=== PATIENT | female | born 1990 | race African-American/Black ===

== ENCOUNTER 2016-06-15 09:11 | Emergency (ER) | payer MEDICAID ==
[~2016-06-15] VITALS: Ht 180.3 cm; Wt 109.0 kg
[2016-06-15 10:33] LABS: BASOPHILS % 0.4 % (0.0-2.0); HEMATOCRIT. 39.9 % (36.0-48.0); LYMPHOCYTES % 34.1 % (20.0-50.0); MEAN CORPUSCULAR HEMOGLOBIN 28.4 pg (28.0-32.0); MEAN CORPUSCULAR HGB CONC 32.6 g/dL (31.0-37.0); MEAN CORPUSCULAR VOLUME 86.9 fL (81.0-99.0); MEAN PLATELET VOLUME 9.5 fl (7.4-10.4); MONOCYTES % 6.9 % (2.0-8.0); NEUTROPHILS % 57.6 % (40.0-76.0); PLATELET 188 x1000/uL (130-400); RED BLOOD CELL COUNT 4.59 mill/uL (4.2-5.4); RED CELL DISTRIBUTION WIDTH 13.3 % (11.6-14.6); WHITE BLOOD COUNT 4.7 x1000/uL (4.5-11.0)
[2016-06-15] MEDS: MAGNESIUM/ALUMINUM HYDROXIDE/SIMETHICONE 30ML UDC PO STA ×2 (10:37→11:49)
[2016-06-15] MEDS: ACETAMINOPHEN 325MG TABLET PO STA ×2 (10:37→11:49)
[2016-06-15] MEDS ORDERED: ONDANSETRON 4MG ODT PO STA (10:37)
[2016-06-15 10:41] LABS: CLARITY URINE CLEAR (CLEAR); COLOR URINE YELLOW (YELLOW); GLUCOSE URINE NEGATIVE (NEGATIVE); KETONES URINE NEGATIVE (NEGATIVE); LEUKOCYTE ESTERASE URINE NEGATIVE (NEGATIVE); NITRITE URINE NEGATIVE (NEGATIVE); OCCULT BLOOD URINE NEGATIVE (NEGATIVE); PH URINE 6.5 (4.5-8.0); PROTEIN URINE NEGATIVE (NEGATIVE); SPECIFIC GRAVITY URINE 1.028 (1.005-1.030)
[2016-06-15 10:42] LABS: ALANINE AMINOTRANSFERASE 14 IU/L (13-61); ANION GAP 10; CALCIUM 8.9 mg/dL (8.5-10.1); CARBON DIOXIDE 28 mEq/L (21-32); CHLORIDE 107 mEq/L (98-107); INDEX HEMOLYSI 1 (1-3); INDEX ICTERIC 1 (1-4); INDEX LIPEMIC 1 (1-3); LIPASE 122 IU/L (73-393); UREA NITROGEN BLOOD 7 mg/dL (7-21); eGFR > 60 mL/min (>60)
[2016-06-15 10:50] LABS: HCG SCREEN NEGATIVE
[2016-06-15 11:01] LABS: *AMPHETAMINES SCREEN URINE NEGATIVE (NEGATIVE); *BARBITURATES SCREEN URINE NEGATIVE (NEGATIVE); *BENZODIAZEPINES SCREEN URINE NEGATIVE (NEGATIVE); *COCAINE SCREEN URINE NEGATIVE (NEGATIVE); ECSTASY MDMA SCREEN URINE NEGATIVE (NEGATIVE); METHADONE URINE SCREEN NEGATIVE (NEGATIVE); OPIATES URINE SCREEN NEGATIVE (NEGATIVE); PHENCYCLIDINE URINE SCREEN NEGATIVE (NEGATIVE)
[2016-06-15 11:03] LABS: CANNABINOID URINE SCREEN PRESUMTIVE POSITIVE (NEGATIVE)
[2016-06-15 11:39] VITALS: BP 105/59
== END 2016-06-15 12:48 | disposition home or self-care (01) ==
LOC: ER 09:20
DX: N85.8 Other specified noninflammatory disorders of uterus (principal)
CPT/HCPCS: 36415; 76830; 76856; 80053; 80305; 81003; 83690; 84703; 85025; 99285; Q0162

== ENCOUNTER 2017-02-22 13:57 | Emergency (ER) | payer MEDICAID ==
[~2017-02-22] VITALS: Ht 180.3 cm; Wt 113.0 kg
[2017-02-22] MEDS ORDERED: KETOROLAC 30MG/ML VIAL IV ONE (17:45)
[2017-02-22] MEDS ORDERED: LIDOCAINE HCL 1% 20ML VIAL (Pyxis) INJ MC ONE (17:45)
[2017-02-22] MEDS ORDERED: MORPHINE SULFATE 4 MG/ML CPJ (NOT FOR IM USE) IV ONE (17:45)
[2017-02-22] MEDS ORDERED: LIDOCAINE/EPINEPHR/TETRACAINE 3ML TP ONE (19:15)
[2017-02-22 21:45] VITALS: BP 125/85
== END 2017-02-22 22:00 | disposition home or self-care (01) ==
LOC: ER 14:36
DX: N76.4 Abscess of vulva (principal)
CPT/HCPCS: 56405; 81025; 96374; 96375; 99284; J1885; J2270; J3490; Z7610

== ENCOUNTER 2017-02-25 11:30 | Emergency (ER) | payer MEDICAID ==
[~2017-02-25] VITALS: Ht 180.3 cm; Wt 114.0 kg
[2017-02-25 11:43] VITALS: BP 121/72
[2017-02-25] MEDS ORDERED: CEPH500C2 PO (11:47)
== END 2017-02-25 13:52 | disposition home or self-care (01) ==
LOC: ER 13:10
DX: Z48.00 Encounter for change or removal of nonsurgical wound dressing (principal)
CPT/HCPCS: 99281

== ENCOUNTER 2017-04-12 06:48 | Emergency (ER) | payer MEDICAID ==
[~2017-04-12] VITALS: Ht 180.3 cm; Wt 113.0 kg
[~2017-04-12 06:48] MED LIST: CEPH500C2 PO
[2017-04-12 08:09] LABS: BASOPHILS % 0.5 % (0.0-2.0); EOSINOPHILS % 1.6 % (0.0-5.0); HEMATOCRIT. 39.3 % (36.0-48.0); HEMOGLOBIN. 12.9 g/dL (12.0-16.0); LYMPHOCYTES % 27.5 % (20.0-50.0); MEAN CORPUSCULAR HEMOGLOBIN 28.6 pg (28.0-32.0); MEAN CORPUSCULAR VOLUME 87.1 fL (81.0-99.0); MEAN PLATELET VOLUME 9.7 fl (7.4-10.4); MONOCYTES % 7.7 % (2.0-8.0); NEUTROPHILS % 62.7 % (40.0-76.0); PLATELET 189 x1000/uL (130-400); RED BLOOD CELL COUNT 4.51 mill/uL (4.2-5.4); RED CELL DISTRIBUTION WIDTH 12.9 % (11.6-14.6)
[2017-04-12 08:16] LABS: KETONES URINE NEGATIVE (NEGATIVE); LEUKOCYTE ESTERASE URINE NEGATIVE (NEGATIVE); NITRITE URINE NEGATIVE (NEGATIVE); OCCULT BLOOD URINE 3+ (NEGATIVE); PROTEIN URINE NEGATIVE (NEGATIVE); SPECIFIC GRAVITY URINE 1.029 (1.005-1.030)
[2017-04-12 08:18] LABS: CLARITY URINE CLEAR (CLEAR); COLOR URINE YELLOW (YELLOW)
[2017-04-12 08:27] LABS: B-HCG QUANTITATIVE 15 mIU/mL (<3); CARBON DIOXIDE 28 mEq/L (21-32); CHLORIDE 106 mEq/L (98-107)
[2017-04-12 09:09] VITALS: BP 134/88
== END 2017-04-12 09:11 | disposition home or self-care (01) ==
LOC: ER 07:14
DX: O03.9 Complete or unspecified spontaneous abortion without complication (principal); Z3A.01 Less than 8 weeks gestation of pregnancy
CPT/HCPCS: 36415; 76801; 80053; 81001; 81025; 84702; 85025; 86850; 86900; 99285

== ENCOUNTER 2017-04-14 18:09 | Emergency (ER) | payer MEDICAID ==
[~2017-04-14] VITALS: Ht 180.3 cm; Wt 113.0 kg
[2017-04-14 23:03] LABS: BASOPHILS % 0.6 % (0.0-2.0); EOSINOPHILS % 1.6 % (0.0-5.0); HEMATOCRIT. 37.1 % (36.0-48.0); HEMOGLOBIN. 12.5 g/dL (12.0-16.0); LYMPHOCYTES % 40.5 % (20.0-50.0); MEAN CORPUSCULAR HEMOGLOBIN 29.5 pg (28.0-32.0); MEAN CORPUSCULAR VOLUME 87.3 fL (81.0-99.0); MEAN PLATELET VOLUME 9.2 fl (7.4-10.4); MONOCYTES % 6.5 % (2.0-8.0); NEUTROPHILS % 50.8 % (40.0-76.0); PLATELET 206 x1000/uL (130-400); RED BLOOD CELL COUNT 4.24 mill/uL (4.2-5.4); RED CELL DISTRIBUTION WIDTH 13.1 % (11.6-14.6)
[2017-04-14 23:09] LABS: CHLORIDE 107 mEq/L (98-107)
[2017-04-14 23:19] LABS: B-HCG QUANTITATIVE 3 mIU/mL (<3)
[2017-04-14 23:59] LABS: CLARITY URINE CLOUDY (CLEAR); COLOR URINE YELLOW (YELLOW); KETONES URINE TRACE (NEGATIVE); LEUKOCYTE ESTERASE URINE NEGATIVE (NEGATIVE); NITRITE URINE NEGATIVE (NEGATIVE); OCCULT BLOOD URINE NEGATIVE (NEGATIVE); PROTEIN URINE NEGATIVE (NEGATIVE); SPECIFIC GRAVITY URINE 1.033 (1.005-1.030)
[2017-04-15 01:20] VITALS: BP 122/71
[2017-04-17 04:18] LABS: CHLAMYDIA TRACHOMATIS NAA Negative (Negative); NEISSERIA GONORRHOEAE NAA Negative (Negative)
== END 2017-04-15 01:47 | disposition home or self-care (01) ==
LOC: ER 20:00
DX: O02.1 Missed abortion (principal)
CPT/HCPCS: 36415; 80053; 81001; 84702; 85025; 86850; 86900; 87210; 87491; 87591; 99284

== ENCOUNTER 2017-06-28 18:03 | Emergency (ER) | payer MEDICAID ==
[~2017-06-28] VITALS: Ht 162.6 cm; Wt 112.0 kg
[2017-06-28] MEDS ORDERED: IBUPROFEN 800MG TABLET PO ONE (18:15)
[2017-06-28] MEDS ORDERED: ONDANSETRON 4MG ODT PO ONE (18:15)
[2017-06-28 20:44] LABS: CLARITY URINE CLEAR (CLEAR); COLOR URINE YELLOW (YELLOW); KETONES URINE 2+ (NEGATIVE); LEUKOCYTE ESTERASE URINE NEGATIVE (NEGATIVE); NITRITE URINE NEGATIVE (NEGATIVE); OCCULT BLOOD URINE NEGATIVE (NEGATIVE); PH URINE 6.5 (4.5-8.0); PROTEIN URINE NEGATIVE (NEGATIVE); SPECIFIC GRAVITY URINE 1.023 (1.005-1.030); UROBILINOGEN URINE 0.2 E.U./dL (0.2-1.0)
[2017-06-28 21:15] VITALS: BP 127/77
== END 2017-06-28 21:20 | disposition home or self-care (01) ==
LOC: ER 18:03
DX: B34.9 Viral infection, unspecified (principal)
CPT/HCPCS: 71045; 81003; 81025; 87804; 99285; Q0162

== ENCOUNTER 2017-09-19 06:38 | Inpatient (IN) | payer MEDICAID ==
[~2017-09-19] VITALS: Ht 175.3 cm; Wt 115.9 kg
[2017-09-19] MEDS ORDERED: ASPIRIN 81MG TABLET PO STA (07:39)
[2017-09-19] MEDS ORDERED: SODIUM CHLORIDE 0.9% 1,000 ML IV ONE (07:39)
[2017-09-19] MEDS ORDERED: NITROGLYCERIN 0.4MG TABLET SL SL PRN (07:45)
[2017-09-19 08:07] LABS: BASOPHILS % 0.2 % (0.0-2.0); EOSINOPHILS % 0.9 % (0.0-5.0); HEMATOCRIT. 38.1 % (36.0-48.0); HEMOGLOBIN. 12.9 g/dL (12.0-16.0); LYMPHOCYTES % 21.8 % (20.0-50.0); MEAN CORPUSCULAR HEMOGLOBIN 28.9 pg (28.0-32.0); MEAN CORPUSCULAR VOLUME 85.2 fL (81.0-99.0); MEAN PLATELET VOLUME 9.3 fl (7.4-10.4); NEUTROPHILS % 71.1 % (40.0-76.0); PLATELET 160 x1000/uL (130-400); RED BLOOD CELL COUNT 4.47 mill/uL (4.2-5.4); RED CELL DISTRIBUTION WIDTH 14.1 % (11.6-14.6)
[2017-09-19 08:14] LABS: CHLORIDE 105 mEq/L (98-107)
[2017-09-19 08:18] LABS: D-DIMER 0.47 mg/L FEU (<0.50); PARTIAL THROMBOPLASTIN TIME 25.4 sec (23.4-31.0); PROTHROMBIN TIME 10.3 sec (9.4-11.6)
[2017-09-19 08:37] LABS: B-HCG QUANTITATIVE 41745 mIU/mL (<3)
[2017-09-19] MEDS ORDERED: ACETAMINOPHEN 325MG TABLET PO NR (19:45)
[2017-09-19 21:30] VITALS: BP 117/75
[2017-09-19] MEDS ORDERED: ACETAMINOPHEN 325MG TABLET PO PRN (21:45)
[2017-09-19] MEDS ORDERED: ONDANSETRON HCL 4MG/2ML VIAL IV PRN (21:45)
[2017-09-20] VITALS: BP_SYST 117; BP_SYST 119; BP_DIAS 61; BP_DIAS 75
[2017-09-20 04:00] VITALS: BP 120/69
[2017-09-20 05:38] LABS: BASOPHILS % 0.2 % (0.0-2.0); HEMATOCRIT. 35.6 % (36.0-48.0); LYMPHOCYTES % 18.4 % (20.0-50.0); MEAN CORPUSCULAR HEMOGLOBIN 28.7 pg (28.0-32.0); MEAN CORPUSCULAR VOLUME 85.5 fL (81.0-99.0); MEAN PLATELET VOLUME 9.5 fl (7.4-10.4); MONOCYTES % 9.7 % (2.0-8.0); NEUTROPHILS % 70.7 % (40.0-76.0); PLATELET 151 x1000/uL (130-400); RED BLOOD CELL COUNT 4.16 mill/uL (4.2-5.4); RED CELL DISTRIBUTION WIDTH 13.9 % (11.6-14.6)
[2017-09-20 06:19] LABS: CHLORIDE 106 mEq/L (98-107)
[2017-09-20 06:32] LABS: CREATINE KINASE MB FRACTION < 0.5 ng/mL (0.5-3.6)
[2017-09-20 06:33] LABS: LDL CHOLESTEROL 62 mg/dL (5-100); T4 FREE 1.01 ng/dL (0.76-1.46)
[2017-09-20 06:34] LABS: CREATINE KINASE 93 IU/L (26-192); HDL CHOLESTEROL 63 mg/dL (40-59)
[2017-09-20] MEDS ORDERED: PREN-134 PO (08:32)
[2017-09-20] MEDS ORDERED: LABE100T MT (08:32)
[2017-09-20 08:50] VITALS: BP 122/74
[2017-09-20] MEDS ORDERED: HYDROCODONE/ACETAMINOPHEN 5/325MG TABLET PO SCH (11:30)
[2017-09-20 12:00] VITALS: BP 113/70
[2017-09-20] MEDS ORDERED: FAMOTIDINE 20MG/2ML VIAL IV SCH (12:30)
[2017-09-20 14:57] VITALS: BP 113/70
[2017-09-20 15:26] LABS: CREATINE KINASE 86 IU/L (26-192)
[2017-09-20 15:27] LABS: CREATINE KINASE MB FRACTION < 0.5 ng/mL (0.5-3.6)
[2017-09-20 16:21] VITALS: BP 119/71
== END 2017-09-20 17:45 | disposition home or self-care (01) | DRG 566 ==
LOC: ER 06:38 → 8WST 11:43 → EDBEDREQTM 11:46 → EDBEDREQ 11:46 → SUPCPDRO 16:34 → ENRESERV 17:54
PROVIDERS: ADMIT Internal Medicine; ATTEND Internal Medicine
DX: O99.411 Diseases of the circulatory system complicating pregnancy, first trimester (principal); O16.1 Unspecified maternal hypertension, first trimester; O25.11 Malnutrition in pregnancy, first trimester; R07.89 Other chest pain; O26.891 Other specified pregnancy related conditions, first trimester; R55 Syncope and collapse; Z79.899 Other long term (current) drug therapy; Z3A.13 13 weeks gestation of pregnancy; Z68.37 Body mass index [BMI] 37.0-37.9, adult
CPT/HCPCS: 36415; 71045; 76801; 80053; 80061; 82550; 82553; 84439; 84443; 84484; 84702; 85025; 85379; 85610; 85730; 86850; 86900; 93005; 93306; 93970; 96360; 96361; 99285; J3490; J7030

== ENCOUNTER 2020-02-20 15:31 | Emergency (ER) | payer MEDICAID ==
[~2020-02-20] VITALS: Ht 180.3 cm; Wt 121.0 kg
[~2020-02-20 15:31] MED LIST changes: -CEPH500C2 PO; +LABE100T5 MT; +PREN-134 PO
[2020-02-20 15:54] VITALS: BP 134/90
== END 2020-02-20 22:47 | disposition left against medical advice (07) ==
LOC: ER 15:31
DX: R07.2 Precordial pain (principal); Z98.890 Other specified postprocedural states
CPT/HCPCS: 93005

== ENCOUNTER 2021-04-02 16:07 | Emergency (ER) | payer MEDICAID ==
[~2021-04-02] VITALS: Ht 180.3 cm; Wt 122.0 kg
[2021-04-02 16:10] VITALS: BP 123/76
[2021-04-02 18:46] LABS: BASOPHILS % 0.3 % (0.0-2.0); EOSINOPHILS % 0.8 % (0.0-5.0); HEMATOCRIT. 39.2 % (36.0-48.0); HEMOGLOBIN. 12.3 g/dL (12.0-16.0); LYMPHOCYTES % 38.5 % (20.0-50.0); MEAN CORPUSCULAR HEMOGLOBIN 26.5 pg (28.0-32.0); MEAN CORPUSCULAR VOLUME 84.3 fL (81.0-99.0); MEAN PLATELET VOLUME 9.3 fl (7.4-10.4); MONOCYTES % 4.8 % (2.0-8.0); NEUTROPHILS % 55.6 % (40.0-76.0); PLATELET 224 x1000/uL (130-400); RED BLOOD CELL COUNT 4.65 mill/uL (4.2-5.4); RED CELL DISTRIBUTION WIDTH 14.2 % (11.6-14.6)
[2021-04-02 19:02] LABS: HCG SCREEN POSITIVE
[2021-04-02 19:13] LABS: CHLORIDE 108 mEq/L (98-107)
[2021-04-02 21:05] LABS: UCG SCREEN POSITIVE
[2021-04-03] MEDS ORDERED: ACETAMINOPHEN 325MG TABLET PO ONE (01:00)
[2021-04-03] MEDS ORDERED: IOHEXOL-350 100 ML BOTTLE ONE (05:47)
== END 2021-04-03 01:03 | disposition home or self-care (01) ==
LOC: ER 16:07
DX: O26.891 Other specified pregnancy related conditions, first trimester (principal); R07.89 Other chest pain; I10 Essential (primary) hypertension; Z3A.01 Less than 8 weeks gestation of pregnancy
CPT/HCPCS: 36415; 71045; 71275; 76801; 76817; 80053; 81025; 83880; 84484; 84702; 84703; 85025; 85379; 93005; 99285; Q9967